=== PATIENT | male | born 2005 | race African-American/Black ===

== ENCOUNTER 2023-09-13 10:25 | Emergency (ER) | payer MEDICAID ==
[~2023-09-13] VITALS: Ht 167.6 cm; Wt 72.7 kg
[2023-09-13] MEDS ORDERED: VALP250C48 PO ×2 (12:15→14:40)
[2023-09-13 12:42] LABS: BASOPHILS % (AUTO) 0.3 % (0.0-2.0); EOSINOPHILS % (AUTO) 0.6 % (1.0-6.0); HEMATOCRIT 48.8 % (41-53); HEMOGLOBIN 16.1 g/dL (13.5-17.5); LYMPHOCYTES # (AUTO) 1.7 K/uL (1.0-4.8); LYMPHOCYTES % (AUTO) 21.4 % (22.0-44.0); MEAN CORPUSCULAR HEMOGLOBIN 27.5 pg (26.0-34.0); MEAN CORPUSCULAR VOLUME 83 fL (80-100); MONOCYTES # (AUTO) 0.9 K/uL (0.1-1.0); MONOCYTES % (AUTO) 11.6 % (2.0-9.0); NEUTROPHILS # (AUTO) 5.2 K/uL (1.8-7.7); NEUTROPHILS % (AUTO) 66.1 % (40.0-70.0); PLATELET COUNT (AUTO) 218 K/uL (150-450); RED BLOOD CELL COUNT(AUTO) 5.86 MIL/uL (4.50-5.90); RED CELL DISTRIBUTION WIDTH 13.8 % (11.5-14.5); WHITE BLOOD COUNT (AUTO) 7.9 K/uL (4.5-11.0)
[2023-09-13 12:53] LABS: ANION GAP 11 mmol/L (8-16); CALCIUM, TOTAL 10.1 mg/dL (8.8-10.5); CARBON DIOXIDE 27 mmol/L (22-29); CHLORIDE 96 mmol/L (98-107); CREATININE 1.13 mg/dL (0.60-1.30); GLOMERULAR FILTR. RATE CALC > 60 mL/min (>60); GLUCOSE,RANDOM 81 mg/dL (70-110); POTASSIUM 4.6 mmol/L (3.5-5.1); SODIUM SERUM 134 mmol/L (136-145); UREA NITROGEN, BLOOD 18 mg/dL (7-18)
[2023-09-13 12:59] LABS: ALANINE AMINOTRANSFERASE 22 U/L (12-78); ALBUMIN 4.3 g/dL (3.4-5.0); ALKALINE PHOSPHATASE 99 U/L (46-116); ASPARTATE AMINOTRANSFERASE 15 U/L (15-37); BILIRUBIN,TOTAL 1.1 mg/dL (0.1-1.0); TOTAL PROTEIN, SERUM 8.9 g/dL (6.4-8.2)
[2023-09-13 13:04] LABS: ALCOHOL, BLOOD (SERUM) < 3 mg/dL (0-10); PHENYTOIN (DILANTIN) < 0.5 mcg/mL (10.0-20.0); VALPROIC ACID < 3 mcg/mL (50-100)
[2023-09-13] MEDS ORDERED: VALPROATE SODIUM 1,000 MG in DEXTROSE 5%-WATER 100 ML IV ONE (13:30)
[2023-09-13 14:40] VITALS: TEMP 98.2
[2023-09-13 15:02] VITALS: BP 123/56; PULSE 86; RESP 16
== END 2023-09-13 15:25 | disposition home or self-care (01) ==
LOC: EMS 10:27
DX: G40.909 Epilepsy, unspecified, not intractable, without status epilepticus (principal)
CPT/HCPCS: 99284; 96365; 80053; 80164; 80185; 85025; 36415; G0480; J3490; J7060